=== PATIENT | male | born 1955 | race Caucasian/White ===

== ENCOUNTER 2016-03-17 07:33 | Day surgery (SDC) | payer BC ==
[2016-03-10 14:49] VITALS: BMI 25.4
[~2016-03-17 07:33] MED LIST: DEXAMETHASONE SOD PHOSPHATE 10 MG/ML 1 ML VIAL IV ONE; HEPARIN SODIUM,PORCINE 5,000 UNIT/ML 1 ML VIAL SQ ONE; MIDAZOLAM 2 MG/2 ML VIAL IV PRN; ONDANSETRON 4 MG/2 ML VIAL IVP ONE; ceFAZolin 2 GM in SODIUM CHLORIDE 0.9% 100 ML IVPB ONE
[2016-03-17] MEDS: LACTATED RINGERS 1,000 ML IV SCH ×2 (08:29→08:30)
[2016-03-17] MEDS ORDERED: LIDOCAINE 1% 20 ML VIAL (10MG/ML) FOR IV START INTRADERMA ONE ×2 (08:30)
--- NOTE | 2016-03-17 09:58 | P.GSHP ---
History of Present Illness H&P Date: 03/17/16 Chief Complaint: Bilateral inguinal hernia and umbilical hernia This is a 58-year-old male who presents today for laparoscopic robotic system repair of bilateral inguinal hernia and umbilical hernia. Patient developed painful masses in his groins. - Constitutional Constitutional: Reports as per HPI Past Medical History Past Medical History: Hyperlipidemia, Osteoarthritis (OA), Skin Disorder Additional Past Medical History / Comment(s): told "changes on EKG" by PCP, rash on side of head, History of Any Multi-Drug Resistant Organisms: None Reported Past Surgical History: Orthopedic Surgery Additional Past Surgical History / Comment(s): ambrose knee arthroscopy(twice on each knee) Past Anesthesia/Blood Transfusion Reactions: Previous Problems w/ Anesthesia Additional Past Anesthesia/Blood Transfusion Reaction / Comment(s): "lungs hurt for 1 week after knee surgery" Past Psychological History: No Psychological Hx Reported Smoking Status: Former smoker Past Alcohol Use History: None Reported Additional Past Alcohol Use History / Comment(s): quit smoking Dec 2015, started smoking age 17, < 1 PPD Past Drug Use History: None Reported - Past Family History Father Family Medical History: Cancer Medications and Allergies Home Medications Medication Instructions Recorded Confirmed Type Pantoprazole [Protonix] 40 mg PO HS 03/10/16 03/17/16 History Simvastatin [Zocor] 40 mg PO HS 03/10/16 03/17/16 History Allergies Allergy/AdvReac Type Severity Reaction Status Date / Time No Known Allergies Allergy Verified 03/17/16 08:15 Surgical - Exam Vital Signs Temp Pulse Resp BP Pulse Ox 98.1 F 70 16 120/82 95 03/17/16 08:08 03/17/16 08:08 03/17/16 08:08 03/17/16 08:08 03/17/16 08:08 - General well developed, no distress - Eyes PERRL - ENT normal pinna - Neck no masses - Respiratory normal expansion - Cardiovascular Rhythm: regular - Abdomen Abdomen: soft, non tender Hernia: inguinal, umbilical Assessment and Plan Plan: Bilaterally we'll hernia and umbilical hernia. We'll perform laparoscopic robotic system repair.
[2016-03-17] MEDS ORDERED: SUCCINYLCHOLINE CHLORIDE 100 MG/5 ML SYR IV ONE (10:07)
[2016-03-17] MEDS ORDERED: PROPOFOL 10 MG/ML 20 ML VIAL IV ONE (10:07)
[2016-03-17] MEDS ORDERED: fentaNYL (PF) 50 MCG/ML 2 ML AMP ONE (10:07)
[2016-03-17] MEDS ORDERED: SODIUM CHLORIDE 0.9% 100 ML BAG ONE (10:07)
[2016-03-17] MEDS ORDERED: HYDROmorphone (PF) 1 MG/ML ONE (10:07)
[2016-03-17] MEDS ORDERED: NEOSTIGMINE 1 MG/ML 10 ML VIAL ONE (10:07)
[2016-03-17] MEDS ORDERED: ceFAZolin 1,000 MG VIAL ONE (10:07)
[2016-03-17] MEDS ORDERED: MIDAZOLAM 2 MG/2 ML VIAL ONE (10:07)
[2016-03-17] MEDS ORDERED: ACETAMINOPHEN IV (For NPO) 1,000 MG/100 ML VIAL ONE (10:07)
[2016-03-17] MEDS ORDERED: ROCURONIUM BROMIDE 10 MG/ML 10 ML VIAL IV ONE (10:07)
[2016-03-17] MEDS ORDERED: LIDOCAINE 1% INJ 10MG/ML (20 ML MDV) ONE (10:07)
[2016-03-17] MEDS ORDERED: GLYCOPYRROLATE 0.2 MG/ML 2 ML VIAL ONE (10:07)
[2016-03-17] MEDS ORDERED: LACTATED RINGERS 1,000 ML BAG IV ONE (10:07)
[2016-03-17] MEDS ORDERED: KETOROLAC 30 MG/ML 1 ML VIAL ONE (10:07)
[2016-03-17] MEDS ORDERED: BUPIVACAIN-EPI 0.25%-1:200,000 30 ML VIAL SQ ONE (10:44)
--- NOTE | 2016-03-17 11:28 | P.OP ---
Date of Procedure: 03/17/16 Preoperative Diagnosis: Bilateral inguinal hernia Umbilical hernia Postoperative Diagnosis: Bilateral inguinal hernia Umbilical hernia Procedure(s) Performed: Laparoscopic robotic system repair of bilateral inguinal hernia and umbilical hernia Anesthesia: YONI Surgeon: Jordan Millard Estimated Blood Loss (ml): 5 Pathology: none sent Condition: stable Disposition: PACU Description of Procedure: The patient's placed on the operating table in the supine position. The patient received general anesthesia. The patient's abdomen was prepped and draped in usual sterile fashion. The skin was anesthetized 1% local Xylocaine at the incision sites. Using an 11 blade a skin incision was made at the umbilicus. The fascia was grasped with a [place] and then the peritoneal cavity was entered with the Veress needle. Position of the Veress needle was confirmed with a positive drop test. After adequate insufflation a 5 mm trocar was placed into the peritoneal cavity. The Laparoscope was placed the peritoneal cavity. And a robotic 8 mm trocar was placed in the right lateral position and then another 8 mm robotic trochars placed in the left lateral position. The original 5 mm trocar was exchanged for a 12 mm trocar. The patient was placed in reverse Trendelenburg and then the patient was docked to the robot. Next the peritoneum over top of the right inguinal hernia was incised and then using blunt and sharp dissection and electrocautery the hernia sac was dissected free from the floor of the inguinal canal. The hernia sac was completely reduced into the peritoneal cavity. And then using the Pro ballet master/mistress mesh the hernia was repaired. The peritoneum was then sutured with 20V lock suture. Next the peritoneum over top of the left inguinal hernia was incised and then using blunt and sharp dissection and electrocautery the hernia sac was dissected free from the floor of the inguinal canal. The hernia sac was completely reduced into the peritoneal cavity. And then using the Pro ballet master/mistress mesh the hernia was repaired. The peritoneum was then sutured with 20V lock suture. The patient was then undocked the robot. Using a 5 mm laparoscope The needle was withdrawn from the peritoneal cavity. The umbilical hernia site was closed with 0 Ethibond suture laparoscopically.. The skin was closed interrupted 3-0 Monocryl suture. Dermabond dressing was applied. Patient was sent to recovery in stable condition.
[2016-03-17 11:40] VITALS: TEMP 97.6
[2016-03-17] MEDS: HYDROmorphone 1 MG/ML 1 ML SYRINGE IVP PRN ×2 (12:45→12:52)
[2016-03-17] MEDS ORDERED: HYDROcodone/APAP 7.5-325MG 1 EACH TAB PO ONE (12:54)
[2016-03-17] MEDS ORDERED: LACTATED RINGERS 1,000 ML IV ONE (14:15)
[2016-03-17 14:52] VITALS: RESP 16
[2016-03-17] MEDS ORDERED: ONDANSETRON 4 MG/2 ML VIAL IVP ONE (16:05)
[2016-03-17 16:12] VITALS: BP 120/73; PULSE 93
== END 2016-03-17 17:02 | disposition home or self-care (01) ==
LOC: OR 07:33
PROVIDERS: ATTEND Surgery
DX: K40.20 Bilateral inguinal hernia, without obstruction or gangrene, not specified as recurrent (principal); K42.9 Umbilical hernia without obstruction or gangrene; E78.5 Hyperlipidemia, unspecified; K21.9 Gastro-esophageal reflux disease without esophagitis; Z79.899 Other long term (current) drug therapy; Z87.891 Personal history of nicotine dependence
CPT/HCPCS: 49650; 49652; C1781; J2250; J1644; J1100; J2710; J2405; J0690; J2001; J3010; J1885; J1170; J0131; J0330; J2704

== ENCOUNTER → 2016-07-18 | Outpatient (CLI) | payer BC ==
--- NOTE | 2016-07-18 23:05 | MR ---
EXAMINATION TYPE: MR shoulder RT wo con DATE OF EXAM: 07/18/2016 10:26 AM COMPARISON: NONE HISTORY: Rt shoulder pain TECHNIQUE: Multiplanar, multisequence imaging of the right shoulder is performed without contrast. FINDINGS: Rotator Cuff: There is complete tear of the supraspinatus tendon with retraction the level of the acr omion. Partial through thickness tear near the insertion of the infraspinatus tendon also noted as pa rt of the conjoined tendon. Subscapularis intact. There is atrophic changes involving both the supras pinatus and infraspinatus muscles. Acromioclavicular Joint: Hypertrophic changes of the AC joint are noted. Glenohumeral Joint: A small glenohumeral joint effusion. The humerus is high riding relative to the g lenoid. Labrum: The labrum appears grossly intact given limitation of non-arthrogram study. Biceps Tendon: The long head of biceps is in normal location within bicipital groove. Bone marrow signal: 1 cm area of abnormal signal involving the humeral head likely reactive related t o chronic rotator cuff tear. IMPRESSION: 1. Complete tear of the supraspinatus tendon and partial through thickness tear of the infraspinatus tendon at the conjoined insertion. There is atrophic changes of both the supraspinatus and infraspina tus muscles. 2. Arthropathy of the AC joint
== END | disposition home or self-care (01) ==
LOC: RADMRIMAIN 09:31
PROVIDERS: ATTEND Orthopaedic Surgery
DX: S46.011A Strain of muscle(s) and tendon(s) of the rotator cuff of right shoulder, initial encounter (principal); M12.811 Other specific arthropathies, not elsewhere classified, right shoulder; M62.89 Other specified disorders of muscle

== ENCOUNTER 2017-01-20 07:05 | Day surgery (SDC) | payer BC ==
[2017-01-18 09:26] VITALS: BMI 24.3
--- NOTE | 2017-01-19 16:05 | HP ---
HISTORY AND PHYSICAL Oskar Molina is a 61-year-old patient seen with progressive right shoulder pain. After we discussed treatment options, the patient opted to proceed with right shoulder arthroscopy. Consent was obtained. Medical clearance was provided by Dr. Lv Daniels. PAST MEDICAL HISTORY: Hypertension. PAST SURGICAL HISTORY: Right knee arthroscopy. DAILY MEDICATIONS: None reported. SOCIAL HISTORY: Patient currently smokes cigarettes. PHYSICAL EVALUATION OF THE RIGHT SHOULDER: Flexion 150 degrees, abduction 140 degrees, external rotation is 50 degrees with some weakness. There is tenderness only to anterolateral acromion and acromioclavicular joint, as well as rotator cuff insertion site. Impingement positive at 90 degrees. Positive drop-arm sign. Distal neurovascular exam is intact. RADIOGRAPHS: Right shoulder radiographs revealed a type 2 anterior acromion, evidence for acromioclavicular joint osteoarthritis. MRI right shoulder revealed a supraspinatus rotator cuff tear and acromioclavicular joint osteoarthritis. IMPRESSION: Right shoulder impingement with rotator cuff tear and acromioclavicular joint osteoarthritis. PLAN: Right shoulder arthroscopy with subacromial decompression,probable arthroscopic rotator cuff repair,Walter procedure and debridement. MMODL / IJN: [id number] /
[~2017-01-20 07:05] MED LIST changes: -HEPARIN SODIUM,PORCINE 5,000 UNIT/ML 1 ML VIAL SQ ONE; +LACTATED RINGERS 1,000 ML IV SCH; +LIDOCAINE 1% 20 ML VIAL (10MG/ML) FOR IV START INTRADERMA PRN; -ONDANSETRON 4 MG/2 ML VIAL IVP ONE; +SCOPOLAMINE 1.5MG/72HR PATCH TRANSDERM ONE; -ceFAZolin 2 GM in SODIUM CHLORIDE 0.9% 100 ML IVPB ONE; +ceFAZolin IN SWFI 2 GM/20 ML SYRINGE IVP ONE
[2017-01-20] MEDS: ONDANSETRON 4 MG/2 ML VIAL IVP ONE ×2 (07:44→12:43)
[2017-01-20] MEDS ORDERED: LIDOCAINE 1% INJ 10MG/ML (20 ML MDV) ONE (08:19)
[2017-01-20] MEDS ORDERED: PROPOFOL 10 MG/ML 20 ML VIAL IV ONE (08:19)
[2017-01-20] MEDS ORDERED: fentaNYL (PF) 50 MCG/ML 2 ML AMP ONE (08:19)
[2017-01-20] MEDS ORDERED: MIDAZOLAM 2 MG/2 ML VIAL ONE (08:19)
[2017-01-20] MEDS ORDERED: SUCCINYLCHOLINE CHLORIDE VIAL 200 MG/10 ML VIAL IV ONE (08:19)
[2017-01-20] MEDS ORDERED: BUPIVACAINE (PF) 0.25% 30 ML VIAL SQ ONE (10:27)
--- NOTE | 2017-01-20 10:48 | P.OP ---
Date of Procedure: 01/20/17 Preoperative Diagnosis: Right shoulder impingement Postoperative Diagnosis: 1. Right shoulder large retracted rotator cuff tear 2. Right shoulder impingement 3. Right shoulder acromioclavicular joint osteoarthritis 4. Right shoulder partial long head biceps tendon tear 5. Right shoulder superficial anterior labral tear Procedure(s) Performed: 1. Right shoulder arthroscopic rotator cuff repair 2. Right shoulder arthroscopic subacromial decompression 3. Right shoulder arthroscopic Walter procedure 4. Right shoulder arthroscopic biceps tenotomy 5. Right shoulder arthroscopic debridement labral tear Implants: 6-peek anchors Anesthesia: YONI, local Surgeon: Archie Iglesias Photoresist Printer #1: Rigoberto Daley Estimated Blood Loss (ml): 20 Pathology: none sent Condition: stable Disposition: PACU Indications for Procedure: 61-year-old patient seen with progressive right shoulder pain. After treatment options were discussed, he elected to proceed with arthroscopy. Operative Findings: See description of procedure Description of Procedure: Patient underwent a shoulder block by department of anesthesia. The patient was then taken to the operative suite. The patient underwent a general anesthetic by the department of anesthesia. The patient was placed into a lateral position and secured. There was appropriate padding of the bony prominence. Right shoulder was then prepped and draped in normal sterile orthopedic fashion. We placed the extremity in 10 pounds of longitudinal traction. A posterior incision was now made for a posterior working portal site. The trocar and cannula were inserted into the glenohumeral joint. Arthroscopy was initiated. Spinal needle was now inserted anteriorly, to ascertain the anterior working portal site. An incision was now made in that area, a trocar was inserted followed by a probe. There was superficial tearing of the anterior labrum. There were grade 1 chondromalacia changes of the glenohumeral joint with no osteochondral tears present. There was partial tearing long head biceps tendon with hyperemia. There was some superficial fraying of the superior labrum. The posterior and inferior labrum were intact. There were no loose bodies. I performed an arthroscopic biceps tenotomy. I debrided the labral tears down to stable tissue. The residual labrum was stable. Instruments now removed from the glenohumeral joint. Utilizing the posterior working portal site, the trocar and cannula were inserted into the subacromial space. Arthroscopy initiated. I made an incision 2 fingerbreadths lateral to the acromion. I introduced my trocar followed by my ArthroCare ablator. I now began ablating thick subacromial bursal tissue, which exposed the undersurface of the anterior acromion. This was diminished subacromial space. There was a very prominent anterior acromion. A motorized bur was introduced and a subacromial decompression was performed. I also excised some osteophytes off the inferior aspect of the distal clavicle. The AC joint was visualized and noted to be fairly arthritic. Our motorized bur was introduced in the anterior portal site and a Walter procedure was performed without difficulty, decompressing the AC joint nicely. I turned my attention to the rotator cuff. There was a massive 3.5 cm to 4 cm distal supraspinatus tendon tear with retraction about 1 cm. At this point I began freeing up the tendon was debriding the distal margins down to stable tissue. At this point I was able to pull the tendon over the footprint. I abraded the footprint with a motorized bur. I created 2 assessoru portal sites of the anterior lash lateral acromion, one anteriorly and one posteriorly. I then introduced 3 medial anchors with 2 sutures each. I now passed all 12 limbs of suture through good bites of rotator cuff tendon. I noted it would be a dogear anteriorly and posteriorly and passed 2 additional loop sutures, one anteriorly and one posteriorly. I now began crisscrossing the sutures pulling the tendon over the footprint and inserting a lateral anchors one at a time beginning anteriorly and working my posteriorly. Residual suture limbs were clipped. We had good compression of the tendon along the footprint. We had good stable repair. Instruments now removed from the portal sites. All portal sites were approximated with nylon suture. The subacromial space was infiltrated with quarter percent plain Marcaine totaling 20 mL. Sterile dressings were applied followed by a shoulder immobilizer. Dl BENAVIDEZ assisted with the procedure. The patient was awakened, transferred to a bed, and taken to recovery in stable condition.
[2017-01-20] MEDS: HYDROmorphone 0.5 MG/0.5 ML SYRINGE IVP PRN ×3 (11:02→11:41)
[2017-01-20 11:05] VITALS: TEMP 97
[2017-01-20 11:18] VITALS: RESP 16
[2017-01-20] MEDS ORDERED: LACTATED RINGERS 1,000 ML IV ONE ×2 (11:45)
[2017-01-20] MEDS ORDERED: HYDROcodone/APAP 7.5-325MG 1 EACH TAB PO ONE (12:17)
[2017-01-20 13:21] VITALS: BP 124/73; PULSE 66
== END 2017-01-20 14:53 | disposition home or self-care (01) ==
LOC: OR 07:05
PROVIDERS: ATTEND Orthopaedic Surgery
DX: M25.811 Other specified joint disorders, right shoulder (principal); M19.011 Primary osteoarthritis, right shoulder; S46.111A Strain of muscle, fascia and tendon of long head of biceps, right arm, initial encounter; S43.401A Unspecified sprain of right shoulder joint, initial encounter; X58.XXXA Exposure to other specified factors, initial encounter; M94.211 Chondromalacia, right shoulder; M25.711 Osteophyte, right shoulder; F17.210 Nicotine dependence, cigarettes, uncomplicated; E78.5 Hyperlipidemia, unspecified; K21.9 Gastro-esophageal reflux disease without esophagitis; Z79.899 Other long term (current) drug therapy
CPT/HCPCS: 64415; 29826; 29827; 29824; C1894; C1713 ×2; J2250; J0330; J1100; J0690; J2405; J2001; J3010; J2704; J1170

== ENCOUNTER → 2018-05-03 | Outpatient (CLI) | payer OTHER ==
--- NOTE | 2018-05-04 09:34 | XR ---
Cervical spine HISTORY: Remote trauma, pain 5 views of the cervical spine Carotid artery calcifications are suspected. Lung apices are normal. Possible thoracic scoliosis, pat ient is rotated. Lateral extension of endplates at C5-6 causes foraminal encroachment bilaterally. Th ere is spondylosis present at multiple levels, loss of disc height is present at C5-6, minimal retrol isthesis grade 1 C5 on C6. Prevertebral soft tissues show some calcification along the anterior disc spaces C3-4, C4-5, C5-6 and C6-7. C7-T1 not well seen. There are facet arthropathy changes. IMPRESSION: Degenerative disc disease, foraminal encroachment, there may be a component of diffuse id iopathic skeletal hyperostosis. Additional findings above, possible thoracic scoliosis.
== END | disposition home or self-care (01) ==
LOC: RADXRMAIN 16:40
PROVIDERS: ATTEND Family Medicine
DX: M50.30 Other cervical disc degeneration, unspecified cervical region (principal); M43.12 Spondylolisthesis, cervical region; M47.812 Spondylosis without myelopathy or radiculopathy, cervical region
CPT/HCPCS: 72050

== ENCOUNTER → 2018-09-15 | Outpatient (CLI) | payer OTHER ==
[2018-09-15 13:14] VITALS: BP 125/81; PULSE 66; RESP 16
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
== END | disposition home or self-care (01) ==
LOC: PNWHC3 12:39
PROVIDERS: ATTEND Anesthesiology
DX: M54.81 Occipital neuralgia (principal); M50.30 Other cervical disc degeneration, unspecified cervical region; E78.5 Hyperlipidemia, unspecified; Z87.891 Personal history of nicotine dependence; Z79.899 Other long term (current) drug therapy
CPT/HCPCS: 99211

== ENCOUNTER 2018-09-27 08:58 | Day surgery (SDC) | payer BC, OTHER ==
[2018-09-23 08:33] VITALS: BMI 23.6
[~2018-09-27 08:58] MED LIST changes: -DEXAMETHASONE SOD PHOSPHATE 10 MG/ML 1 ML VIAL IV ONE; -LIDOCAINE 1% 20 ML VIAL (10MG/ML) FOR IV START INTRADERMA PRN; -MIDAZOLAM 2 MG/2 ML VIAL IV PRN; -SCOPOLAMINE 1.5MG/72HR PATCH TRANSDERM ONE; -ceFAZolin IN SWFI 2 GM/20 ML SYRINGE IVP ONE
[2018-09-27 09:53] VITALS: RESP 18; TEMP 98
[2018-09-27 11:09] VITALS: BP 127/85; PULSE 74
--- NOTE | 2018-09-27 12:21 | P.PCN ---
Date of Procedure: 09/27/18 Procedure(s) Performed: Pre-operative diagnosis: Right occipital neuralgia Post Operative Diagnosis same Procedure: Right greater occipital nerve block ANESTHESIA: none EBL: Minimal PROCEDURE INDICATION: The patient with neck pain and headache secondary to occipital neuralgia unresponsive to conservative treatments. PROCEDURE DESCRIPTION / TECHNIQUE: The patient was seen and identified in the preoperative area. Risks, benefits, complications, and alternatives were discussed with the patient, the patient agreed to proceed with the procedure and signed the consent. Vital signs remained stable throughout the procedure. Patient was taken to the OR and time out was completed. The patient was placed in the seated position on the procedure table. The cervical area and right occiptial area were prepped with alcohol swab. Vital signs were closely monitored during the procedure. The right occiptal ridge was palpated and was then accessed with a 25 G needle. Then after negative aspiration, 3 ml of the block solution containing 2ml of ropivacaine 0.5% and Kenalog 40 mg was injected. Needle was withdrawn intact. Patient tolerated procedure well. No acute complications. The patient reported numbness in the distribution of the right occipital nerve following the procedure.
== END 2018-09-27 11:24 | disposition home or self-care (01) ==
LOC: ORPAIN 08:58
PROVIDERS: ATTEND Anesthesiology
DX: M54.81 Occipital neuralgia (principal); M50.322 Other cervical disc degeneration at C5-C6 level; E78.5 Hyperlipidemia, unspecified; M19.90 Unspecified osteoarthritis, unspecified site; Z87.891 Personal history of nicotine dependence; Z79.899 Other long term (current) drug therapy; Z80.9 Family history of malignant neoplasm, unspecified
CPT/HCPCS: 64405

== ENCOUNTER 2018-10-25 08:04 | Day surgery (SDC) | payer OTHER, MEDICARE, BC ==
[2018-10-19 10:28] VITALS: BMI 27.9
[2018-10-25 08:17] VITALS: RESP 18; TEMP 97.8
--- NOTE | 2018-10-25 09:19 | P.PCN ---
Date of Procedure: 10/25/18 Procedure(s) Performed: Preoperative diagnoses= 1- Right Greater occipital neuralgia Postoperative diagnoses= same as preoperative diagnosis. Procedure= Right Greater occipital nerve block Anesthesia= none Estimated blood loss=minimal. Procedure indication= the patient had a history of severe chronic neck pain ,and headache, diagnosed with occipital neuralgia exam was positive for severe tenderness over the occipital nerve bilaterally, she will be a good candidate occipital nerve block, patient failed conservative management Procedure description= the patient was seen and identified in the preoperative holding area, risks and benefits and alternative of the procedure and possible complications discussed with the patient, and he agreed with the preceding, patient signed the consent, an IV was started, and vital signs were monitored and were stable throughout the procedure, patient was placed in the sitting position or table and the neck area was prepped and draped with a sterile fashion, vital signs were closely monitored during the procedure, 25-gauge needle advanced 1 inch lateral to the occipital protuberance on the right side, at the location of the right occipital nerve , then after negative aspiration for heme and CSF and there was no paresthesia during the injection, 6 ml of Robivacaine 0.5% and 40 mg of Depo-Medrol injected after negative aspiration, the needle removed intact. Patient tolerated the procedure well without any complication, The patient returned to supine position after the back was cleaned and a Band- Aid applied, the patient transported to recovery room in stable condition and he was monitored for 30 minutes before he was discharged home and then patient was reexamined before going home and patient was discharged in stable condition and patient will follow up with the pain clinic in a few weeks.
[2018-10-25 09:40] VITALS: BP 129/84; PULSE 63
== END 2018-10-25 09:50 | disposition home or self-care (01) ==
LOC: ORPAIN 08:04
PROVIDERS: ATTEND Specialist
DX: G89.29 Other chronic pain (principal); M54.81 Occipital neuralgia
CPT/HCPCS: 64405; J1030

== ENCOUNTER → 2018-10-31 | Outpatient (CLI) | payer MEDICARE, BC ==
--- NOTE | 2018-10-31 08:31 | US ---
EXAMINATION TYPE: US duplex aorta DATE OF EXAM: 10/31/2018 COMPARISON: NONE CLINICAL HISTORY: J32.1 GERD. Abdominal pain. EXAM MEASUREMENTS: Abdominal Aorta: Proximal: 2.6cm Mid: 2.1cm Distal: 1.3 Bifurcation: Right 0.9cm, Left 1.0cm IMPRESSION: No sonographic evidence of abdominal aortic aneurysm in the visualized abdominal aorta.
== END ==
LOC: RADUSWWP 07:26
PROVIDERS: ATTEND Family Medicine
DX: K21.9 Gastro-esophageal reflux disease without esophagitis (principal)
CPT/HCPCS: 93979

== ENCOUNTER → 2018-11-09 | Outpatient (CLI) | payer MEDICARE, BC ==
[2018-11-09 13:33] VITALS: RESP 18
[2018-11-09 13:35] VITALS: BP 130/85; PULSE 93
--- NOTE | 2018-11-09 18:55 | P.PAINPG ---
Subjective Progress Note Date: 11/09/18 This is a follow-up visit for this 63 years old male with a chronic history of severe neck pain and headache, patient diagnosed with occipital neuralgia and cervical degenerative disc disease, and cervicalgia, status post right side occipital nerve block 2, patient reported that the block helped to improve the Dull pain Slightly, but he continued to have severe headache and neck pain, which is increased with coughing and sneezing and facing down, he denies any motor or sensory deficit in the upper extremities, he denies any fever or night sweats he denies any change in the bowel movement or urination, Objective - Vital Signs Vital signs: Vital Signs Temp Pulse 93 11/09/18 13:27 Resp 18 11/09/18 13:27 BP 130/85 11/09/18 13:27 Pulse Ox 93 L 11/09/18 13:27 Intake & Output 11/08/18 11/09/18 11/09/18 18:59 06:59 18:59 Weight 81.647 kg - Exam Physical Examinations : -Constitutiona : Cooperative , not in acute distress . -HEENT : nech : supple , no Lymphadenopathy , normal thyroid size . eyes : no ptosis , no icterus, no photophobia . ENT : normal of hearing , normal oropharynx , no Thrush . - Respiratory : Chest clear to auscultations Bilaterally , no wheezing , no Rhonchi . - Cardiovascula : regular rate and rhythem , S1 , S2 , no S3 , no S4. - Gastrointestina : abdomen soft no tenderness , bowel sounds , no organomegally . - Genitourinary : Defferred . - neurologic : Cranial nerve II to XII intact , no focal neurological deffecit . -psychatric : alert , oriented X 3 , appropriate affect , intact judgment and insight . -Lymphatic : no Lymphadenopathy . - musculoskeltal : Cervical Spine motor stregnth in the deltoid and biceps, normal right side , normal Left side motor stregnth biceps and the wrist extensors normal right side ,normal left side . motor stregnth in the triceps muscle . normal Right side , normal Left side Normal sensation in the upper extre mities bilaterally Slight tenderness over the right occipital nerve cervical facet loading test: Negative on the left side and slightly positive on the right side Spurling test negative bilaterally. Neck distraction test negative bilate rally. Rich sign negative bilaterally. Lumber spine moter stegnth lower extremities ,thigh and legs 5/5 Right side , 5/5 Left side Assessment and Plan Plan: Assessment and plan= occipital neuralgia, cervicogenic headache, cervical spondylosis with cervical facet arthropathy, cervical degenerative disc disease Patient had minimal improvement of the neck pain and headache at times occipital nerve block done twice. Patient could benefit from right-sided medial branch block cervical area C2 , C3 , and right third occipital nerve block Procedure risk and benefits and alternatives discussed with the patient he agreed with proceeding Time with Patient: Less than 30 PQRS Measure Charge Sheet Measure #130: Documentation of Current Meds in Medical Chart: Patient's medications documented in chart Measure #226: Tobacco Use: Screen & Cessation Intervention: Pt not a tobacco user Measure #111: Pneumonia Vaccination: Pneumococcal vaccine NOT administered or previously given Measure #47: Advance Care Plan: Advance care planning discussed & documented, pt chose/unable to give Measure #412: Opioid Treatment Agreement: No documentation of signed opioid treatment agreement Measure #408: Opioid Therapy Follow-up Evaluation: Patient had NO f/u eval minimum every 3 months during opioid therapy Measure #317: Preventitive Care & Scrn High Bld Press & F/U: Normal blood pressure, f/u not required Measure #128: Body Mass Index (BMI) Screening & Follow-up: BMI documented ABOVE normal parameters - f/u documented Measure #131: Pain Assessment & Follow-up: Pain positive & plan documented, Follow-up scheduled Measure #431: Unhealthy Alcohol Use Preventative Care & Scrn: Patient not identified as an unhealthy alcohol user PQRS Narrative: Smoking Status Former smoker Blood Pressure 130/85 Pain Intensity [Upper Neck] 3 Scale Used Numeric (1 - 10) Hx Alcohol Use (MH) No Home Medications: Ambulatory Orders Simvastatin [Zocor] 40 mg PO HS PRN 03/10/16 [place] Cream 1 dose TOPICAL TID PRN 09/13/18 Controlled Substance Measures - Controlled Substance Measures Is patient prescribed a controlled substance at discharge?: No
== END | disposition home or self-care (01) ==
LOC: PNWHC3 12:58
PROVIDERS: ATTEND Specialist
DX: M50.30 Other cervical disc degeneration, unspecified cervical region (principal); M47.812 Spondylosis without myelopathy or radiculopathy, cervical region; M46.92 Unspecified inflammatory spondylopathy, cervical region; M54.81 Occipital neuralgia; R51 Headache; Z87.891 Personal history of nicotine dependence
CPT/HCPCS: 99211

== ENCOUNTER → 2019-05-24 | Outpatient (CLI) | payer MEDICARE, BC ==
--- NOTE | 2019-05-24 11:43 | MR ---
EXAMINATION TYPE: MR shoulder LT wo con DATE OF EXAM: 05/24/2019 COMPARISON: None HISTORY: Left shoulder pain TECHNIQUE: Multiplanar, multisequence imaging of the left shoulder is performed without contrast. FINDINGS: Rotator Cuff: There is a high-grade partial-thickness tear of the supraspinatus mid and anterior fibe rs measuring 1.9 x 2.2 cm. The posterior fibers appear intact. There is bursal surface fraying of the infraspinatus fibers and a 0.5 x 1.2 cm intrasubstance tear of the myotendinous junction. There is a lso articular surface fraying and multiple fenestrations in the insertional fibers of the infraspinat us with mild underlying tendinopathy. The teres minor also demonstrates mild tendinopathy with signal alteration of the intrinsic fibers. The subscapularis appears intact and unremarkable. Acromioclavicular Joint: There is moderate acromioclavicular arthropathy with marginal osteophytes an d capsular hypertrophy. There is some impression downward on the supraspinatus myotendinous junction without focal signal alteration of the supraspinatus to suggest internal impingement. Glenohumeral Joint: Mild joint space narrowing and small osteophytes are seen. Few subcortical cysts. Labrum: There is concern for a superior labral anterior to posterior tear, limited evaluation without intra-articular contrast. Biceps Tendon: The long head of biceps is in normal location within bicipital groove. There is modera te tendinopathy of the intra-articular portion of the long head of the biceps tendon with abnormal si gnal. Bone marrow signal: No focal abnormal marrow signal is appreciated. Other: A small amount of fluid is seen in the subcoracoid recess. IMPRESSION: 1. High-grade partial-thickness tear of the supraspinatus at the mid and anterior insertional fibers measuring 1.9 x 2.2 cm. A few posterior fibers remain intact. 2. Bursal surface antigen testicular surface fraying of the infraspinatus distal insertional fibers w ith multiple fenestrations at the insertion on the humeral head. 3. Intrasubstance tear of infraspinatus measuring 0.5 x 1.2 cm at the myotendinous junction. 4. Mild tendinopathy of the teres minor and moderate tendinopathy of the intra-articular portion of t he long head of biceps tendon. 5. Suspected superior labral anterior posterior tear although limited without intra-articular contras t.
== END | disposition home or self-care (01) ==
LOC: RADMRIMAIN 10:13
PROVIDERS: ATTEND Orthopaedic Surgery
DX: M75.102 Unspecified rotator cuff tear or rupture of left shoulder, not specified as traumatic (principal); S46.812A Strain of other muscles, fascia and tendons at shoulder and upper arm level, left arm, initial encounter; M67.814 Other specified disorders of tendon, left shoulder; Z98.890 Other specified postprocedural states

== ENCOUNTER → 2019-09-14 | Day surgery (SDC) | payer MEDICARE, BC ==
[2019-09-12 09:45] VITALS: BMI 28.7
[~2019-09-14] MED LIST changes: +DEXAMETHASONE SOD PHOSPHATE 10 MG/ML 1 ML VIAL IV ONE; +HYDROmorphone 0.5 MG/0.5 ML SYRINGE IVP PRN; +LIDOCAINE 1% (10MG/ML) FOR IV START INTRADERMA ONE; +LIDOCAINE 1% INJ 10MG/ML (20 ML MDV) ONE; +ONDANSETRON 4 MG/2 ML VIAL IVP ONE; +PROPOFOL 10 MG/ML 20 ML VIAL IV ONE
--- NOTE | 2019-09-14 10:26 | P.GSHP ---
History of Present Illness H&P Date: 09/14/19 Chief Complaint: Constipation This a 64-year-old male presents today for colonoscopy. He has issues constipation. Past Medical History Past Medical History: Hyperlipidemia, Osteoarthritis (OA), Skin Disorder Additional Past Medical History / Comment(s): WAS IN [place] 03/01/18 AND HAD WHIPLASH EFFECT-now gets headaches from, hx ulcers, constipation, rash on scalp, History of Any Multi-Drug Resistant Organisms: None Reported Past Surgical History: Hernia Repair, Orthopedic Surgery Additional Past Surgical History / Comment(s): ambrose knee arthroscopy(twice on each knee), RIGHT SHOULDER rotator cuff Past Anesthesia/Blood Transfusion Reactions: Previous Problems w/ Anesthesia, Postoperative Nausea & Vomiting (PONV) Additional Past Anesthesia/Blood Transfusion Reaction / Comment(s): "lungs hurt for 1 week after surgery" due to coughing while under anesthesia Smoking Status: Former smoker - Past Family History Father Family Medical History: Cancer Mother Family Medical History: No Reported History Medications and Allergies Home Medications Medication Instructions Recorded Confirmed Type Pantoprazole [Protonix] 40 mg PO HS 11/14/18 09/14/19 History Meloxicam [Mobic] 15 mg PO HS 09/12/19 09/12/19 History Simvastatin [Zocor] 20 mg PO HS 09/12/19 09/14/19 History Allergies Allergy/AdvReac Type Severity Reaction Status Date / Time No Known Allergies Allergy Verified 09/12/19 09:35 Surgical - Exam Vital Signs Temp Pulse Resp BP Pulse Ox 97.6 F 96 16 139/86 94 L 09/14/19 09:13 09/14/19 09:13 09/14/19 09:13 09/14/19 09:13 09/14/19 09:13 - General well developed, well nourished, no distress - Eyes PERRL - ENT normal pinna - Neck no masses - Respiratory normal expansion - Cardiovascular Rhythm: regular - Abdomen Abdomen: soft, non tender Assessment and Plan Assessment: Constipation. We'll perform colonoscopy.
--- NOTE | 2019-09-14 10:35 | P.OP ---
Date of Procedure: 09/14/19 Preoperative Diagnosis: GI bleed Postoperative Diagnosis: Diverticulosis Sigmoid colon polyp Procedure(s) Performed: Colonoscopy Anesthesia: MAC Surgeon: Jordan Millard Pathology: other (Sigmoid colon polyp) Condition: stable Disposition: PACU Description of Procedure: The patient's placed on the endoscopy table in the lateral position. He received IV sedation. Digital rectal exam performed which revealed no abnormalities. The prostate was symmetric without nodules. The flexible colonoscope was then placed patient anus and passed throughout the entire colon. The ileocecal valve sutures. The cecum, ascending and transverse colon appeared normal. In the descending colon there is mild diverticulosis; there is more diverticula changes and a small polyp was seen this removed with the cold forcep. The scope was brought back the rectum this appeared normal. Scope was withdrawn for patient.
[2019-09-15 08:38] VITALS: BP 125/85; PULSE 72; RESP 16; TEMP 97.6
== END | disposition home or self-care (01) ==
LOC: ORWHC2ENDO 08:27
PROVIDERS: ATTEND Surgery
DX: K63.5 Polyp of colon (principal); K57.30 Diverticulosis of large intestine without perforation or abscess without bleeding; E78.5 Hyperlipidemia, unspecified; M19.90 Unspecified osteoarthritis, unspecified site; Z87.19 Personal history of other diseases of the digestive system; Z98.890 Other specified postprocedural states; Z87.891 Personal history of nicotine dependence; Z80.9 Family history of malignant neoplasm, unspecified; Z79.899 Other long term (current) drug therapy; Z79.1 Long term (current) use of non-steroidal anti-inflammatories (NSAID)
CPT/HCPCS: 88305; 45380; J2001; J2704

== ENCOUNTER → 2020-01-16 | Outpatient (CLI) | payer MEDICARE, BC ==
--- NOTE | 2020-01-16 09:30 | US ---
EXAMINATION TYPE: US abdomen limited DATE OF EXAM: 01/16/2020 COMPARISON: US CLINICAL HISTORY: R94.5 abnormal liver function. Takes medication for high cholesterol; antacid for G I ulcer, Flomax EXAM MEASUREMENTS: Liver Length: 15.4 cm Gallbladder Wall: 0.2 cm CBD: 0.4 cm Right Kidney: 9.4 x 4.9 x 4.0 cm Pancreas: hyperechoic Liver: hyperechoic to right renal cortex suggests fatty liver Gallbladder: wnl Evidence for sonographic Ngo's sign: wnl CBD: wnl Right Kidney: No hydronephrosis or masses seen IMPRESSION: Hepatic steatosis.
== END | disposition home or self-care (01) ==
LOC: RADUSWWP 08:18
PROVIDERS: ATTEND Family Medicine
DX: K76.0 Fatty (change of) liver, not elsewhere classified (principal)
CPT/HCPCS: 76705

== ENCOUNTER → 2021-05-02 | Outpatient (CLI) | payer MEDICARE, BC ==
--- NOTE | 2021-05-02 11:41 | US ---
EXAMINATION TYPE: US carotid duplex BILAT DATE OF EXAM: 05/02/2021 COMPARISON: NONE CLINICAL HISTORY: G45.9 TIA, H53.469 HOMONYMOUS BILATERAL FIELD DEFE. TIA, Right eye vision disturban ce, difficulty speaking EXAM MEASUREMENTS: RIGHT: Peak Systolic Velocity (PSV) cm/sec ----- Right CCA: 95.3 ----- Right ICA: 91.0 ----- Right ECA: 125.8 ICA/CCA ratio: 1.0 RIGHT: End Diastole cm/sec ----- Right CCA: 28.5 ----- Right ICA: 24.1 ----- Right ECA: 28.5 LEFT: Peak Systolic Velocity (PSV) cm/sec ----- Left CCA: 80.9 ----- Left ICA: 67.2 ----- Left ECA: 113.0 ICA/CCA ratio: 0.8 LEFT: End Diastole cm/sec ----- Left CCA: 28.2 ----- Left ICA: 27.1 ----- Left ECA: 22.5 VERTEBRALS (direction of flow): Right Vertebral: Antegrade Left Vertebral: Antegrade Rhythm: Normal No elevated velocities IMPRESSION: No evidence for hemodynamically significant stenosis. Criteria for Assigning % of Stenosis / Diameter reduction (Estimation based on the indirect measurements of the internal carotid artery velocities (ICA PSV). 1. Normal (no stenosis)=ICA PSV < 125 cm/s: ratio < 2.0: ICA EDV<40 cm/s. 2. Less than 50% stenosis=ICA PSV < 125 cm/s: ratio < 2.0: ICA EDV<40 cm/s. 3. 50 to 69% stenosis=ICA PSV of 125 to 230 cm/s: ration 2.0 ? 4.0: ICA EDV 40-100 cm/s. 4. Greater than 70% stenosis to near occlusion= ICA PSV > 230 cm/s: ratio > 4.0: ICA EDV > 100 cm/s. 5. Near occlusion= ICA PSV velocities may be low or undetectable: variable ratio and ICA EDV. 6. Total occlusion=unable to detect flow.
--- NOTE | 2021-05-02 13:51 | CT ---
EXAMINATION TYPE: CT brain w con DATE OF EXAM: 05/02/2021 COMPARISON: None HISTORY: TIA, visual changes CT DLP: 1054.2 mGycm Automated exposure control for dose reduction was used. CONTRAST: CT scan of the head is performed with IV Contrast, patient injected with 100 mL of Isovue 300. FINDINGS: There is no abnormal enhancing mass or midline shift identified. The ventricles and sulci are within normal limits in size. The globes are intact and the visualized sinuses are clear. IMPRESSION: Negative contrast enhanced head CT exam.
== END | disposition home or self-care (01) ==
LOC: RADUSWWP 10:41
PROVIDERS: ATTEND Family Medicine
DX: G45.9 Transient cerebral ischemic attack, unspecified (principal); H53.469 Homonymous bilateral field defects, unspecified side
CPT/HCPCS: 82565; 84520; 93880; 70460; 36415; Q9967

== ENCOUNTER → 2021-06-04 | Outpatient (CLI) | payer MEDICARE, BC ==
--- NOTE | 2021-06-05 05:32 | MR ---
EXAMINATION TYPE: MR knee RT wo con DATE OF EXAM: 06/04/2021 COMPARISON: 12/06/2014 HISTORY: Multiplanar multiecho imaging of the right knee without contrast. The anterior and posterior cruciate ligaments are intact. There is knee joint effusion. Patella is in tact. The collateral ligaments are intact There is complex tear of the anterior and posterior horns of the lateral meniscus. There are minor de generative signal changes in the medial meniscus. No evidence of medial meniscal tear. No evidence of fracture. No bone edema. IMPRESSION: Mild knee joint effusion. There are tears of the anterior and posterior horn of the lateral meniscus. No fracture. No evidence of ligamentous tear.
== END | disposition home or self-care (01) ==
LOC: RADMRIMAIN 12:58
PROVIDERS: ATTEND Orthopaedic Surgery
DX: M25.461 Effusion, right knee (principal); M23.341 Other meniscus derangements, anterior horn of lateral meniscus, right knee; M23.351 Other meniscus derangements, posterior horn of lateral meniscus, right knee

== ENCOUNTER → 2021-06-18 | Outpatient (CLI) | payer MEDICARE, BC ==
[2021-06-18 23:42] LABS: Basophils # (A) 0.02 X 10*3/uL (0.00-0.10); Basophils % (A) 0.3 %; Eosinophils # (A) 0.43 X 10*3/uL (0.04-0.35); Eosinophils % (A) 6.7 %; HCT 45.2 % (39.6-50.0); HGB 14.8 g/dL (13.0-17.0); Immature Grans, Automated 0.3 %; Lymphocytes # (A) 2.69 X 10*3/uL (0.90-5.00); Lymphocytes % (A) 41.7 %; MCH 30.3 pg (27.0-32.0); MCHC 32.7 g/dL (32.0-37.0); MCV 92.6 fL (80.0-97.0); Monocytes # (A) 0.43 X 10*3/uL (0.20-1.00); Monocytes % (A) 6.7 %; NRBC Per 100 WBC 0 /100 WBCS (0.0-0.0); Neutrophils # (A) 2.86 X 10*3/uL (1.80-7.70); Neutrophils % (A) 44.3 %; Platelet Count 176 X 10*3/uL (140-440); RBC 4.88 X 10*6/uL (4.40-5.60); RDW 13.6 % (11.5-14.5); WBC 6.45 X 10*3/uL (4.50-10.00)
[2021-06-19 00:52] LABS: Anion Gap 13.4 mmol/L (10.00-18.00); Carbon Dioxide 21.3 mmol/L (20.0-27.5); Potassium 3.9 mmol/L (3.5-5.5)
== END | disposition home or self-care (01) ==
LOC: LABPAT 13:41
PROVIDERS: ATTEND Orthopaedic Surgery
DX: Z01.812 Encounter for preprocedural laboratory examination (principal); M23.91 Unspecified internal derangement of right knee
CPT/HCPCS: 36415; 80051; 85025; 93005

== ENCOUNTER 2021-07-17 08:58 | Day surgery (SDC) | payer MEDICARE, BC ==
[2021-07-16 13:38] VITALS: BMI 27.6
--- NOTE | 2021-07-16 17:58 | HP ---
HISTORY AND PHYSICAL DATE OF SURGERY: 07/17/2021 Oskar Molina is a 65-year-old patient seen with progressive right knee pain. We discussed options for treatment. The patient elected to proceed with right knee arthroscopy. Consent was obtained. PAST MEDICAL HISTORY: Hyperlipidemia. PAST SURGICAL HISTORY: Knee arthroscopy, shoulder arthroscopy. DAILY MEDICATIONS: Meloxicam, simvastatin. ALLERGIES: NONE. SOCIAL HISTORY: He smokes cigarettes. PHYSICAL EVALUATION OF RIGHT KNEE: Range of motion is negative 1/2 to 130. Mild effusion. Tenderness along the medial joint line. Positive tenderness along the lateral joint line. Positive medial Val's. Positive lateral Val's. Ligaments stable. Distal neurovascular exam intact. Radiographs of the right knee revealed osteoarthritic changes. MRI right knee revealed lateral meniscal tears and effusion. IMPRESSION: 1. Internal derangement of right knee with lateral meniscal tear. 2. Hyperlipidemia. PLAN: Right knee arthroscopy with partial lateral meniscectomy and debridement. MMODL / IJN: [id number] /
[~2021-07-17 08:58] MED LIST changes: -DEXAMETHASONE SOD PHOSPHATE 10 MG/ML 1 ML VIAL IV ONE; +DEXAMETHASONE SOD PHOSPHATE 4 MG/ML 1 ML VIAL IV ONE; -LIDOCAINE 1% (10MG/ML) FOR IV START INTRADERMA ONE; -LIDOCAINE 1% INJ 10MG/ML (20 ML MDV) ONE; -PROPOFOL 10 MG/ML 20 ML VIAL IV ONE
[2021-07-17] MEDS ORDERED: BUPIVACAINE (PF) 0.25% 30 ML VIAL SQ ONE (10:31)
[2021-07-17] MEDS ORDERED: MIDAZOLAM 2 MG/2 ML VIAL ONE (11:11)
[2021-07-17] MEDS ORDERED: PROPOFOL 10 MG/ML 20 ML VIAL IV ONE (11:11)
[2021-07-17] MEDS ORDERED: LIDOCAINE 2% INJ 20 MG/ML (2 ML VIAL) ONE (11:11)
[2021-07-17] MEDS ORDERED: fentaNYL (PF) 50 MCG/ML 2 ML AMP ONE (11:11)
--- NOTE | 2021-07-17 11:56 | P.OP ---
Date of Procedure: 07/17/21 Preoperative Diagnosis: Internal derangement right knee Postoperative Diagnosis: 1. Tear medial and lateral meniscus right knee 2. Grade 2 chondromalacia medial femoral condyle right knee 3. Reactive synovitis medial, lateral and suprapatellar compartments right knee Procedure(s) Performed: 1. Arthroscopic partial medial and lateral meniscectomy right knee 2. Arthroscopic partial synovectomy medial, lateral and suprapatellar compartments right knee 3. Arthroscopic chondroplasty medial femoral condyle right knee Anesthesia: SIRIAA, local Surgeon: Archie Iglesias Estimated Blood Loss (ml): 7 Pathology: none sent Condition: stable Disposition: PACU Indications for Procedure: 65-year-old patient seen with progressive right knee pain. After treatment options were discussed, he elected to proceed with arthroscopy. Operative Findings: See description of procedure Description of Procedure: Patient was taken to the operative suite. Patient underwent a general anesthetic by the department of anesthesia. Patient was given preoperative antibiotics. The right lower extremity was placed in a well-padded arthroscopic leg brandon. The right leg was prepped and draped in the normal sterile orthopedic fashion. A lateral parapatellar and suprapatellar incision was made. Trochars were inserted. Arthroscopy was initiated. Suprapatellar pouch revealed diffuse thick reactive synovitis. The patellofemoral joint appeared articulate congruently. There was grade 1 chondromalacia of the patella with no significant osteochondral tears present. The scope was guided into the medial gutter. No loose bodies or plica were identified. The scope was then guided into the medial compartment. A medial parapatellar incision was made. Trocar inserted followed by probe. There was a radial tear posterior horn medial meniscus. There was an area of grade 2 chondromalacia medial femoral condyle with a large osteochondral flap tear. There was thick reactive synovitis anteriorly. I performed a partial medial meniscectomy getting down to stable meniscal tissue. I performed a chondroplasty of the medial femoral condyle getting down to stable osteochondral tissue. I performed a partial synovectomy decompressing the thick reactive synovitis. The residual meniscus was stable. The residual osteochondral surface was stable. There was good decompression of the synovitis. Scope and probe were then guided into the intercondylar notch. Cruciates were identified, probed and found to be stable. The scope and probe were then guided into lateral compartment. There was a radial tear involving the midbody lateral meniscus. There were grade 1 chondromalacia changes of the tibial plateau. There was some thick reactive synovitis anteriorly. I performed a partial lateral meniscectomy getting down to stable meniscal tissue. I performed a partial synovectomy decompressing the reactive synovitis in the anterior aspect of the lateral compartment. The residual meniscus was stable. There was good decompression of the synovitis. The scope was in guided back into the suprapatellar compartment. I introduced a motorized shaver into the suprapatellar compartment. I debrided some piecemeal fragments of meniscus I encountered. I performed a partial synovectomy. The shaver was removed. There was good decompression of the synovitis. I now took one more look around the entire knee, no residual debris. Instruments were now removed from the joint. The joint was infiltrated with .25% Marcaine. Steri-Strips were applied to the portal sites. Sterile dressings were applied. The patient was placed into a JUVENAL hose. No tourniquet was utilized. The patient was awakened, transferred to a bed and taken to recovery stable satisfactory condition.
[2021-07-17 11:59] VITALS: TEMP 96.9
[2021-07-17 13:17] VITALS: BP 121/68; PULSE 65; RESP 16
== END 2021-07-17 13:45 | disposition home or self-care (01) ==
LOC: OR 08:58
PROVIDERS: ATTEND Orthopaedic Surgery
DX: S83.281A Other tear of lateral meniscus, current injury, right knee, initial encounter (principal); E78.5 Hyperlipidemia, unspecified; K21.9 Gastro-esophageal reflux disease without esophagitis; Z87.891 Personal history of nicotine dependence; Z79.82 Long term (current) use of aspirin; Z79.899 Other long term (current) drug therapy; M19.90 Unspecified osteoarthritis, unspecified site
CPT/HCPCS: 29880; J2250; J1100; J0690; J2405; J3010; J2704; J2001

== ENCOUNTER → 2023-08-11 | Outpatient (CLI) | payer MEDICARE ==
--- NOTE | 2023-08-11 20:37 | MR ---
EXAMINATION TYPE: MR knee RT wo con DATE OF EXAM: 08/11/2023 COMPARISON: 06/04/2021 HISTORY: Right knee pain and swelling x1 month, Hx surgery meniscal repair TECHNIQUE: Multiplanar, multisequence imaging of the right knee is performed without IV contrast. FINDINGS: There is physiologic joint fluid. There is no bone contusion or fracture. The cruciate and collateral ligaments are intact. There is tear of the posterior horn of the lateral meniscus. The medial meniscus is intact. The quadriceps and patellar tendons are intact. There is no significant degenerative arthritis in the articular cartilages are well preserved. There are no osteochondral defects. IMPRESSION: Tear of the posterior horn of the lateral meniscus. No other significant abnormality seen.
== END | disposition home or self-care (01) ==
LOC: RADMRIMAIN 16:08
PROVIDERS: ATTEND Orthopaedic Surgery
DX: S83.281A Other tear of lateral meniscus, current injury, right knee, initial encounter (principal); X58.XXXA Exposure to other specified factors, initial encounter

== ENCOUNTER → 2023-09-01 | Outpatient (CLI) | payer MEDICARE ==
[2023-09-01 18:28] LABS: Basophils # (A) 0.02 X 10*3/uL (0.00-0.10); Basophils % (A) 0.3 %; Eosinophils # (A) 0.21 X 10*3/uL (0.04-0.35); Eosinophils % (A) 3.3 %; HCT 47.4 % (39.6-50.0); HGB 15.4 g/dL (13.0-17.0); Lymphocytes # (A) 2.74 X 10*3/uL (0.90-5.00); Lymphocytes % (A) 43.7 %; MCHC 32.5 g/dL (32.0-37.0); MCV 95.4 FL (80.0-97.0); Mean Platelet Volume 10.3 FL (9.5-12.2); Monocytes % (A) 6.4 %; NRBC Per 100 WBC 0 X 10*3/uL (0.00-0.01); Neutrophils # (A) 2.89 X 10*3/uL (1.80-7.70); Neutrophils % (A) 46.1 %; Platelet Count 160 X 10*3/uL (140-440); RBC 4.97 X 10*6/uL (4.40-5.60); RDW 13.2 % (11.5-14.5); WBC 6.27 X 10*3/uL (4.50-10.00)
[2023-09-01 20:22] LABS: Potassium 4.3 mmol/L (3.5-5.5)
== END | disposition home or self-care (01) ==
LOC: LABWHC1 13:04
PROVIDERS: ATTEND Orthopaedic Surgery
DX: Z01.818 Encounter for other preprocedural examination (principal); M23.91 Unspecified internal derangement of right knee
CPT/HCPCS: 36415; 80051; 85025; 93005

== ENCOUNTER 2023-09-23 11:57 | Day surgery (SDC) | payer MEDICARE ==
--- NOTE | 2023-09-22 20:31 | HP ---
HISTORY AND PHYSICAL DATE OF SURGERY: 09/23/2023. HISTORY OF PRESENT ILLNESS: Oskar Molina is a 68-year-old gentleman seen with progressive right knee pain. We discussed options regarding treatment. He elected to proceed with right knee arthroscopy. Consent was obtained. PAST MEDICAL HISTORY: Hyperlipidemia. PAST SURGICAL HISTORY: Knee arthroscopy, shoulder arthroscopy. DAILY MEDICATIONS: 1. Simvastatin. 2. Meloxicam. 3. Aspirin. ALLERGIES: None. SOCIAL HISTORY: Denies tobacco use. PHYSICAL EVALUATION OF THE RIGHT KNEE: Range of motion is 0 to 125 degrees. Mild effusion. He has tenderness along the medial joint line. There is a positive medial Val's. Tenderness along lateral joint line. Positive lateral Vla's. Ligaments stable. Hip rotation without pain. Distal neurovascular exam is intact. IMAGING STUDIES: Right knee radiographs revealed mild osteoarthritis. MRI of right knee revealed lateral meniscal tear. IMPRESSION: Internal derangement of right knee with lateral meniscal tear. PLAN: Right knee arthroscopy with partial lateral meniscectomy and debridement. MMODL / IJN: [id number] /
[~2023-09-23 11:57] MED LIST changes: -DEXAMETHASONE SOD PHOSPHATE 4 MG/ML 1 ML VIAL IV ONE; -HYDROmorphone 0.5 MG/0.5 ML SYRINGE IVP PRN; -LACTATED RINGERS 1,000 ML IV SCH; +LIDOCAINE 1% (10MG/ML) FOR IV START INTRADERMA PRN; -ONDANSETRON 4 MG/2 ML VIAL IVP ONE; +droPERidol 5 MG/2 ML VIAL IVP PRN
[2023-09-23] MEDS: LACTATED RINGERS 1,000 ML IV SCH (12:32)
[2023-09-23] MEDS: DEXAMETHASONE SOD PHOSPHATE 4 MG/ML 1 ML VIAL IV ONE (12:32)
[2023-09-23] MEDS: ONDANSETRON 4 MG/2 ML VIAL IVP ONE (12:32)
[2023-09-23] MEDS: LACTATED RINGERS 1,000 ML IV ONE (12:33)
[2023-09-23] MEDS: BUPIVACAINE (PF) 0.25% 30 ML VIAL MISCELLANE ONE (13:26)
[2023-09-23] MEDS ORDERED: PROPOFOL 10 MG/ML 20 ML VIAL IV ONE (13:29)
[2023-09-23] MEDS ORDERED: KETOROLAC 15 MG/ML 1 ML VIAL ONE (13:29)
[2023-09-23] MEDS ORDERED: fentaNYL (PF) 50 MCG/ML 2 ML AMP ONE (13:29)
[2023-09-23] MEDS ORDERED: LIDOCAINE 1% INJ 10MG/ML (20 ML MDV) ONE (13:29)
[2023-09-23 14:16] VITALS: TEMP 98.5
--- NOTE | 2023-09-23 14:18 | P.OP ---
Date of Procedure: 09/23/23 Preoperative Diagnosis: Internal derangement right knee Postoperative Diagnosis: 1. Tear medial and lateral meniscus right knee 2. Reactive synovitis medial, lateral and suprapatellar compartments right knee 3. Grade II/III chondromalacia medial femoral condyle right knee Procedure(s) Performed: 1. Arthroscopic partial medial and lateral meniscectomy right knee 2. Arthroscopic partial synovectomy medial, lateral and suprapatellar compartments right knee 3. Arthroscopic chondroplasty medial femoral condyle right knee Anesthesia: SIRIAA, local Surgeon: Archie Iglesias Estimated Blood Loss (ml): 6 Pathology: none sent Condition: stable Disposition: PACU Indications for Procedure: 68-year-old patient seen with progressive right knee pain. After having treatment options discussed, he elected to proceed with arthroscopy. Operative Findings: See description of procedure Description of Procedure: Patient was taken to the operative suite. Patient underwent a general anesthetic by the department of anesthesia. Patient was given preoperative antibiotics. The right lower extremity was placed in a well-padded arthroscopic leg brandon. The right leg was prepped and draped in the normal sterile orthopedic fashion. A lateral parapatellar and suprapatellar incision was made. Trochars were inserted. Arthroscopy was initiated. Suprapatellar pouch revealed diffuse thick reactive synovitis. The patellofemoral joint appeared articular congruently. There was grade I/II chondromalacia of the patella without significant tears. The scope was guided into the medial gutter. No loose bodies or plica were identified. The scope was then guided into the medial compartment. A medial parapatellar incision was made. Trocar inserted followed by probe. There was a tear involving the posterior horn of the medial meniscus. There were grade II/III chondromalacia changes of the medial femoral condyle with some osteochondral flap tears present. There were grade II chondromalacia changes of the tibial plateau with no tears. There was some thick reactive synovitis anteriorly. I performed a partial medial meniscectomy getting down to stable meniscal tissue. I performed a chondroplasty of the medial femoral condyle getting down to stable osteochondral tissue. I performed a partial synovectomy decompressing the reactive synovitis. The residual meniscus was probed and was found to be stable. The residual osteochondral surface was stable. There was good decompression of the synovitis. Scope and probe were then guided into the intercondylar notch. Cruciates were identified, probed and found to be stable. The scope and probe were then guided into lateral compartment. There was a tear involving the mid bilateral meniscus. There was grade II chondromalacia changes involving the lateral tibial plateau without tears. There was grade I chondromalacia of the lateral femoral condyle without significant tearing. There was thick reactive synovitis anteriorly. I performed a partial lateral meniscectomy getting down to stable meniscal tissue. I performed a partial synovectomy decompressing the reactive synovitis. The residual meniscus was stable. There was good decompression of the synovitis. The scope was in guided back into the suprapatellar compartment. I introduced a motorized shaver into the suprapatellar compartment. I debrided some piecemeal fragments of meniscus that I encountered. I performed a partial synovectomy. The shaver was removed. There was good decompression of the synovitis. I now took one more look around the entire knee, no residual debris. Instruments were now removed from the joint. The joint was infiltrated with .25% Marcaine. Steri-Strips were applied to the portal sites. Sterile dressings were applied. The patient was placed into a JUVENAL hose. No tourniquet was utilized. The patient was awakened, transferred to a bed and taken to recovery stable satisfactory condition.
[2023-09-23] MEDS: HYDROmorphone 0.5 MG/0.5 ML SYRINGE IVP PRN (15:04)
[2023-09-23 15:23] VITALS: RESP 12
[2023-09-23 15:52] VITALS: BP 139/79; PULSE 68
== END 2023-09-23 16:02 | disposition home or self-care (01) ==
LOC: OR 11:57
PROVIDERS: ATTEND Orthopaedic Surgery
DX: S83.281A Other tear of lateral meniscus, current injury, right knee, initial encounter (principal); M65.161 Other infective (teno)synovitis, right knee; M22.41 Chondromalacia patellae, right knee; E78.5 Hyperlipidemia, unspecified; Z79.82 Long term (current) use of aspirin; Z79.899 Other long term (current) drug therapy; X58.XXXA Exposure to other specified factors, initial encounter
CPT/HCPCS: 29880; J1100; J0690; J2405; J2001; J3010; J1885; J2704; J1170; J0665

== ENCOUNTER → 2023-10-13 | Outpatient (CLI) | payer MEDICARE | END | disposition home or self-care (01) | LOC: LABPRL 11:30 | PROVIDERS: ATTEND Nurse Practitioner Family | DX: E78.5 Hyperlipidemia, unspecified (principal); R79.89 Other specified abnormal findings of blood chemistry | CPT/HCPCS: 80053; 80061; 83735; 84439; 84443 ==